=== PATIENT | female | born 1955 | race Caucasian/White ===

== ENCOUNTER → 2017-03-12 | Outpatient (CLI) | payer BC ==
--- NOTE | 2017-03-16 09:03 | MM ---
Reason for exam: screening (asymptomatic). Last mammogram was performed 1 year and 3 months ago. History: Patient is postmenopausal, has history of other cancer at age 58, and had first child at age 39. Family history of breast cancer in maternal grandmother at age 70. Took estrogen for 2 years beginning at age 52. Physical Findings: A clinical breast exam by your physician is recommended on an annual basis and results should be correlated with mammographic findings. MG 3D Screening Mammo W/Cad Bilateral CC and MLO view(s) were taken. Prior study comparison: November 28, 2015, bilateral MG 3d screening mammo w/cad. October 16, 2014, left breast MG work up mamm w CAD LT. The breast tissue is heterogeneously dense. This may lower the sensitivity of mammography. No suspicious abnormality. No significant changes when compared with prior studies. ASSESSMENT: Negative, BI-RAD 1 RECOMMENDATION: Routine screening mammogram of both breasts in 1 year.
== END | disposition home or self-care (01) ==
LOC: RADMAMWWP 16:17
PROVIDERS: ATTEND Obstetrics & Gynecology
DX: Z12.31 Encounter for screening mammogram for malignant neoplasm of breast (principal)
CPT/HCPCS: 77063; G0202

== ENCOUNTER 2017-03-13 06:22 | Emergency (ER) | payer BC ==
[2017-03-13 07:15] LABS: Basophils % (A) 0 %; CH 31.5; CHCM 34.1; Eosinophils # (A) 0.1 k/uL (0-0.7); Eosinophils % (A) 0 %; HCT 50.4 % (34.0-46.0); HDW 2.41; HGB 16.8 gm/dL (11.4-16.0); Luc # (Auto) 0.05; Luc % (Auto) 0; Lymphocytes # (A) 0.8 k/uL (1.0-4.8); Lymphocytes % (A) 6 %; MCH 30.8 pg (25.0-35.0); MCHC 33.2 g/dL (31.0-37.0); MCV 92.7 fL (80.0-100.0); Mean Platelet Volume 7.8; Monocytes # (A) 0.3 k/uL (0-1.0); Monocytes % (A) 3 %; Neutrophils # (A) 11.8 k/uL (1.3-7.7); Neutrophils % (A) 90 %; RBC 5.44 m/uL (3.80-5.40); WBC 13.1 k/uL (3.8-10.6); WBC (Perox) 13.17
[2017-03-13] MEDS ORDERED: ONDANSETRON 4 MG/2 ML VIAL IVP STA (07:18)
[2017-03-13 07:20] LABS: Appearance,Urine Clear (Clear); Bilirubin,Urine Negative (Negative); Glucose,Urine (UA) Negative (Negative); Ketones,Urine 1+ (Negative); Leukocyte Esterase,Urine Trace (Negative); Mucus,Urine Moderate /hpf; Nitrite,Urine Negative (Negative); PH, Urine 6.5 (5.0-8.0); Particle Count 5253; Protein,Urine Trace (Negative); RBC,Urine 2 /hpf (0-5); Specific Gravity,Urine 1.014 (1.001-1.035); Squamous Epithelial Cell,Urine <1 /hpf (0-4); UA Billing (MACRO vs. MICRO) MICRO; Urobilinogen,Urine <2.0 mg/dL (<2.0); WBC,Urine 3 /hpf (0-5)
[2017-03-13] MEDS ORDERED: MORPHINE SULFATE 10 MG/ML SYRINGE IVP STA (07:20)
[2017-03-13 07:23] LABS: ALT 26 U/L (9-52); AST 23 U/L (14-36); Alkaline Phosphatase 90 U/L (38-126); Amylase 39 U/L (30-110); Anion Gap 13 mmol/L; Blood Urea Nitrogen 21 mg/dL (7-17); Calcium 10.9 mg/dL (8.4-10.2); Carbon Dioxide 22 mmol/L (22-30); Chloride 105 mmol/L (98-107); Glucose 175 mg/dL (74-99); Non-African American GFR(MDRD) >60 (>60 ml/min/1.73 sqM); Potassium 4.5 mmol/L (3.5-5.1); Sodium 140 mmol/L (137-145); Total Bilirubin 0.9 mg/dL (0.2-1.3); Total Protein 8.5 g/dL (6.3-8.2)
--- NOTE | 2017-03-13 07:28 | ED ---
Abdominal Pain HPI - General Chief Complaint: Abdominal Pain Stated Complaint: Abd pain Time Seen by Provider: 03/13/17 07:01 Source: patient Mode of arrival: wheelchair Limitations: no limitations - History of Present Illness Initial Comments: 's patient is a 61-year-old woman who presents to be evaluated for abdominal pain, nausea and vomiting. The patient states that the pain started around 6 PM. It was after she had eaten a ham sandwich. The pain is located in the midabdomen just below the umbilicus. It is aching, moderate, and she has not noted worsening factors, but does feel a little better if she holds her abdomen. She started having multiple episodes of vomiting shortly after 1 AM. She states that now she is just vomiting bile. MD Complaint: abdominal pain Onset/Timin -: hour(s) Location: periumbilical Radiation: none Migration to: no migration Severity: moderate Quality: aching Consistency: constant Improves With: nothing Worsens With: nothing Associated Symptoms: nausea, vomiting - Related Data Home Medications Medication Instructions Recorded Confirmed Calcium Carb/Vitamin D3/Vit K1 1 tab PO HS 03/13/17 03/13/17 [Viactiv Soft Chew Tablet] Calcium Carb/Vitamin D3/Vit K1 2 tab PO QAM 03/13/17 03/13/17 [Viactiv Soft Chew Tablet] Diltiazem HCl [Cartia Xt] 120 mg PO DAILY 03/13/17 03/13/17 Excedrin Tension Headache 2 tab PO Q12H PRN 03/13/17 03/13/17 Previous Rx's Medication Instructions Recorded Dicyclomine [Bentyl] 20 mg PO QID #15 tablet 03/13/17 Famotidine [Pepcid] 20 mg PO DAILY #14 tablet 03/13/17 Ondansetron Odt [Zofran ODT] 4 mg PO Q8HR PRN #10 tab 03/13/17 Allergies Allergy/AdvReac Type Severity Reaction Status Date / Time No Known Allergies Allergy Verified 03/13/17 07:39 Review of Systems ROS Statement: Those systems with pertinent positive or pertinent negative responses have been documented in the HPI. ROS Other: All systems not noted in ROS Statement are negative. Constitutional: Denies: fever, chills Respiratory: Denies: cough, dyspnea Cardiovascular: Denies: chest pain, palpitations, edema Gastrointestinal: Reports: abdominal pain, nausea, vomiting. Denies: diarrhea, constipation Genitourinary: Denies: dysuria, hematuria Musculoskeletal: Denies: back pain Skin: Denies: rash Neurological: Denies: headache, weakness, numbness Past Medical History Past Medical History: Atrial Fibrillation, Asthma History of Any Multi-Drug Resistant Organisms: None Reported Past Surgical History: Appendectomy, Hysterectomy Additional Past Surgical History / Comment(s): left knee arthroscopy Past Psychological History: No Psychological Hx Reported Smoking Status: Never smoker Past Alcohol Use History: Occasional Past Drug Use History: None Reported General Exam Limitations: no limitations General appearance: alert, in no apparent distress Head exam: Present: atraumatic, normocephalic Eye exam: Present: normal appearance. Absent: scleral icterus, conjunctival injection ENT exam: Present: mucous membranes dry Respiratory exam: Present: normal lung sounds bilaterally. Absent: respiratory distress, wheezes, rales, rhonchi, stridor Cardiovascular Exam: Present: regular rate, normal rhythm, normal heart sounds. Absent: systolic murmur, diastolic murmur, rubs, gallop GI/Abdominal exam: Present: soft, diminished bowel sounds. Absent: distended, tenderness, guarding, rebound, rigid, mass, pulsatile mass, hernia Extremities exam: Present: normal inspection, normal capillary refill. Absent: pedal edema, calf tenderness Back exam: Present: normal inspection. Absent: CVA tenderness (R), CVA tenderness (L) Neurological exam: Present: alert Skin exam: Present: warm, dry, intact, normal color. Absent: rash Course Vital Signs 03/13/17 03/13/17 06:25 07:53 Temperature 97.9 F 98.3 F Pulse Rate 99 81 Respiratory 28 H 16 Rate Blood Pressure 168/80 138/75 O2 Sat by Pulse 100 95 Oximetry Medical Decision Making - Lab Data Result diagrams: 03/13/17 06:44 03/13/17 06:44 Lab Results 03/13/17 03/13/17 03/13/17 Range/Units 06:40 06:44 06:44 WBC 13.1 H (3.8-10.6) k/uL RBC 5.44 H (3.80-5.40) m/uL Hgb 16.8 H (11.4-16.0) gm/dL Hct 50.4 H (34.0-46.0) % MCV 92.7 (80.0-100.0) fL MCH 30.8 (25.0-35.0) pg MCHC 33.2 (31.0-37.0) g/dL RDW 14.0 (11.5-15.5) % Plt Count 329 (150-450) k/uL Neutrophils % 90 % Lymphocytes % 6 % Monocytes % 3 % Eosinophils % 0 % Basophils % 0 % Neutrophils # 11.8 H (1.3-7.7) k/uL Lymphocytes # 0.8 L (1.0-4.8) k/uL Monocytes # 0.3 (0-1.0) k/uL Eosinophils # 0.1 (0-0.7) k/uL Basophils # 0.0 (0-0.2) k/uL Sodium 140 (137-145) mmol/L Potassium 4.5 (3.5-5.1) mmol/L Chloride 105 (98-107) mmol/L Carbon Dioxide 22 (22-30) mmol/L Anion Gap 13 mmol/L BUN 21 H (7-17) mg/dL Creatinine 0.84 (0.52-1.04) mg/dL Est GFR (MDRD) Af Amer >60 (>60 ml/min/1.73 sqM) Est GFR (MDRD) Non-Af >60 (>60 ml/min/1.73 sqM) Glucose 175 H (74-99) mg/dL Calcium 10.9 H (8.4-10.2) mg/dL Total Bilirubin 0.9 (0.2-1.3) mg/dL AST 23 (14-36) U/L ALT 26 (9-52) U/L Alkaline Phosphatase 90 (38-126) U/L Total Protein 8.5 H (6.3-8.2) g/dL Albumin 5.2 H (3.5-5.0) g/dL Amylase 39 (30-110) U/L Lipase 68 (23-300) U/L Urine Color Yellow Urine Appearance Clear (Clear) Urine pH 6.5 (5.0-8.0) Ur Specific [place] 1.014 (1.001-1.035) Urine Protein Trace H (Negative) Urine Glucose (UA) Negative (Negative) Urine Ketones 1+ H (Negative) Urine Blood Negative (Negative) Urine Nitrite Negative (Negative) Urine Bilirubin Negative (Negative) Urine Urobilinogen <2.0 (<2.0) mg/dL Ur Leukocyte Esterase Trace H (Negative) Urine RBC 2 (0-5) /hpf Urine WBC 3 (0-5) /hpf Ur Squamous Epith Cells <1 (0-4) /hpf Hyaline Casts 1 (0-2) /lpf Urine Mucus Moderate H (None) /hpf Disposition Clinical Impression: Abdominal pain, Ileus Disposition: HOME SELF-CARE Condition: Good Instructions: Abdominal Pain (ED) Prescriptions: Dicyclomine [Bentyl] 20 mg PO QID #15 tablet Famotidine [Pepcid] 20 mg PO DAILY #14 tablet Ondansetron Odt [Zofran ODT] 4 mg PO Q8HR PRN #10 tab PRN Reason: Nausea Referrals: Timoteo Dougherty MD [Primary Care Provider] - 1-2 days
--- NOTE | 2017-03-13 07:42 | XR ---
EXAMINATION TYPE: XR KUB DATE OF EXAM: 03/13/2017 COMPARISON: NONE INDICATION: Abdominal pain nausea TECHNIQUE: Single view abdomen upright view FINDINGS: Air-fluid levels are within small bowel loops within the left midabdomen. Some colonic bowel gas is p resent. Psoas margins are normal. No organomegaly is present. IMPRESSION: 1. Nonspecific abdomen. Correlate for focal ileus versus gastroenteritis. Partial small bowel obstruc tion is considered less likely. Follow-up can be performed as clinically indicated.
[2017-03-13 08:01] VITALS: BP 138/75; PULSE 81; RESP 16; TEMP 98.3
== END 2017-03-13 08:25 | disposition home or self-care (01) ==
LOC: EC 06:22
DX: K56.7 Ileus, unspecified (principal); I48.91 Unspecified atrial fibrillation; Z79.899 Other long term (current) drug therapy; Z90.49 Acquired absence of other specified parts of digestive tract
CPT/HCPCS: 99284; 96374; 96375; 36415; 80053; 82150; 83690; 85025; 81001; 74000; J2270; J2405

== ENCOUNTER → 2018-04-30 | Outpatient (CLI) | payer BC ==
--- NOTE | 2018-05-05 09:00 | MM ---
Reason for exam: screening (asymptomatic). Last mammogram was performed 1 year and 2 months ago. History: Patient is postmenopausal, has history of other cancer at age 58, and had first child at age 39. Family history of breast cancer in maternal grandmother at age 70. Took estrogen for 2 years beginning at age 52. Physical Findings: A clinical breast exam by your physician is recommended on an annual basis and results should be correlated with mammographic findings. MG 3D Screening Mammo W/Cad Bilateral CC and MLO view(s) were taken. Prior study comparison: March 12, 2017, bilateral MG 3d screening mammo w/cad. November 28, 2015, bilateral MG 3d screening mammo w/cad. The breast tissue is heterogeneously dense. This may lower the sensitivity of mammography. No significant changes when compared with prior studies. ASSESSMENT: Negative, BI-RAD 1 RECOMMENDATION: Routine screening mammogram of both breasts in 1 year.
== END | disposition home or self-care (01) ==
LOC: RADMAMWWP 11:59
PROVIDERS: ATTEND Obstetrics & Gynecology
DX: Z12.31 Encounter for screening mammogram for malignant neoplasm of breast (principal)
CPT/HCPCS: 77063; 77067

== ENCOUNTER → 2018-10-19 | Outpatient (CLI) | payer BC ==
[2018-10-19 16:26] LABS: LDL Cholesterol,Calculated 121.4 mg/dL (0.0-131.0); VLDL Calculation 12.6 mg/dL (5.00-40.00)
== END | disposition home or self-care (01) ==
LOC: LABWHC1 11:09
PROVIDERS: ATTEND Internal Medicine Interventional Cardiology
DX: E78.2 Mixed hyperlipidemia (principal)
CPT/HCPCS: 36415; 80061; 84450; 84460

== ENCOUNTER 2020-01-03 22:22 | Emergency (ER) | payer BC ==
[2020-01-03 22:28] VITALS: RESP 16
[2020-01-03] MEDS ORDERED: ONDANSETRON 4 MG/2 ML VIAL IVP STA (22:40)
[2020-01-03] MEDS ORDERED: MORPHINE SULFATE 4 MG/ML SYRINGE IVP STA (22:40)
--- NOTE | 2020-01-03 22:49 | ED ---
General Adult HPI - General Chief complaint: Extremity Injury, Upper Stated complaint: Fall, L Shoulder Pain Time Seen by Provider: 01/03/20 22:31 Source: patient, RN notes reviewed Mode of arrival: ambulatory Limitations: no limitations - History of Present Illness Initial comments: 64-year-old female with a past medical history of atrial fibrillation, asthma presents to the emergency room for a chief complaint of left shoulder pain. Patient reports that it is raining out and she was stepping into her car. She stepped on the foot bar and slipped here and she fell directly onto the left shoulder. Has significant pain on the left shoulder and movement of the left shoulder. Denies hitting her head or neck. Denies blood thinners. No loss of consciousness. Denies pain elsewhere.Patient has no other complaints at this time including shortness of breath, chest pain, abdominal pain, nausea or vomiting, headache, or visual changes. - Related Data Home Medications Medication Instructions Recorded Confirmed Calcium Carb/Vitamin D3/Vit K1 1 tab PO HS 03/13/17 03/13/17 [Viactiv Soft Chew Tablet] Calcium Carb/Vitamin D3/Vit K1 2 tab PO QAM 03/13/17 03/13/17 [Viactiv Soft Chew Tablet] Diltiazem HCl [Cartia Xt] 120 mg PO DAILY 03/13/17 03/13/17 Excedrin Tension Headache 2 tab PO Q12H PRN 03/13/17 03/13/17 Previous Rx's Medication Instructions Recorded Dicyclomine [Bentyl] 20 mg PO QID #15 tablet 03/13/17 Famotidine [Pepcid] 20 mg PO DAILY #14 tablet 03/13/17 Ondansetron Odt [Zofran ODT] 4 mg PO Q8HR PRN #10 tab 03/13/17 HYDROcodone/APAP 5-325MG [[place] 1 tab PO Q6HR PRN #10 tab 01/04/20 5-325] Allergies Allergy/AdvReac Type Severity Reaction Status Date / Time No Known Allergies Allergy Verified 01/03/20 22:28 Review of Systems ROS Statement: Those systems with pertinent positive or pertinent negative responses have been documented in the HPI. ROS Other: All systems not noted in ROS Statement are negative. Past Medical History Past Medical History: Atrial Fibrillation, Asthma History of Any Multi-Drug Resistant Organisms: None Reported Past Surgical History: Appendectomy, Hysterectomy Additional Past Surgical History / Comment(s): left knee arthroscopy Past Psychological History: No Psychological Hx Reported Smoking Status: Never smoker Past Alcohol Use History: Occasional Past Drug Use History: None Reported General Exam Limitations: no limitations General appearance: alert, in no apparent distress Head exam: Present: atraumatic, normocephalic, normal inspection Eye exam: Present: normal appearance, PERRL, EOMI. Absent: scleral icterus, conjunctival injection, periorbital swelling ENT exam: Present: normal exam, mucous membranes moist Neck exam: Present: normal inspection, full ROM. Absent: tenderness, meningismus, lymphadenopathy Respiratory exam: Present: normal lung sounds bilaterally. Absent: respiratory distress, wheezes, rales, rhonchi, stridor Cardiovascular Exam: Present: regular rate, normal rhythm, normal heart sounds. Absent: systolic murmur, diastolic murmur, rubs, gallop, clicks GI/Abdominal exam: Present: soft, normal bowel sounds. Absent: distended, tenderness, guarding, rebound, rigid Extremities exam: Present: tenderness (ttenderness to the lateral shoulder. No tenderness in the distal humerus.), normal capillary refill (capillary refill less than 2 seconds, radial pulse 2+ in the left upper extremity.), other (skin intact. Sensation intact. Right upper extremity and bilateral lower extremities have full range motion.). Absent: full ROM (patient unable to move the left shoulder. Patient able to move all fingers of the left hand, make a fist, spread digits, make okay sign, and flex and extend the left wrist.), joint swelling Course Vital Signs 01/03/20 22:25 Temperature 98.2 F Pulse Rate 81 Respiratory 16 Rate Blood Pressure 130/77 O2 Sat by Pulse 100 Oximetry Medical Decision Making - Medical Decision Making neurovascular status intact. X-ray of the left shoulder shows a comminuted humeral neck fracture with impaction. patient was placed in a sling. Pain controlled. Will be sent home with Tylenol 3 starter pack as well as [place] prescription. Discussed follow-up parameters. We'll return for worsening symptoms. Disposition Clinical Impression: Fracture of neck of humerus Disposition: HOME SELF-CARE Condition: Good Instructions (If sedation given, give patient instructions): Arm Fracture in Adults (ED) Additional Instructions: please take Tylenol 3 or [place] for pain. use sling as needed for comfort. Please follow-up with orthopedics tomorrow by calling for an appointment. Return to the emergency room for any worsening symptoms. Prescriptions: HYDROcodone/APAP 5-325MG [[place] 5-325] 1 tab PO Q6HR PRN #10 tab PRN Reason: Pain Is patient prescribed a controlled substance at d/c from ED?: Yes When asked, does pt state using other controlled substances?: No If prescribed controlled substance>3 days was MAPS reviewed?: Prescribed <3 Days If opioid is for acute pain is fill amount 7 days or less?: Yes If Rx opioid, was Start Talking consent form obtained?: Yes Referrals: Timoteo Dougherty MD [Primary Care Provider] - 1-2 days Bertin Mckinley MD [STAFF PHYSICIAN] - 1-2 days Time of Disposition: 00:16
--- NOTE | 2020-01-03 23:38 | XR ---
EXAMINATION TYPE: XR shoulder complete LT DATE OF EXAM: 01/03/2020 COMPARISON: NONE HISTORY: Fall. Pain. TECHNIQUE: 2 views FINDINGS: There is impacted comminuted humeral neck fracture. There is no dislocation. AC joint is in tact. Scapula is intact. IMPRESSION: Comminuted humeral neck fracture with impaction.
[2020-01-04] MEDS ORDERED: ACET/COD 300 MG/30 MG STARTER PACK 6 TAB BTL PO STA (00:17)
[2020-01-04] MEDS ORDERED: HYDROmorphone 0.5 MG/0.5 ML SYRINGE IVP STA (00:29)
[2020-01-04 01:06] VITALS: BP 132/65; PULSE 77; TEMP 98.3
== END 2020-01-04 00:30 | disposition home or self-care (01) ==
LOC: EC 22:22
DX: S42.212A Unspecified displaced fracture of surgical neck of left humerus, initial encounter for closed fracture (principal); I48.91 Unspecified atrial fibrillation; W01.0XXA Fall on same level from slipping, tripping and stumbling without subsequent striking against object, initial encounter
CPT/HCPCS: 73030; 99283; 96374; 96375 ×2; J2270; J2405

== ENCOUNTER → 2020-04-19 | Outpatient (CLI) | payer BC ==
--- NOTE | 2020-04-20 10:39 | MM ---
Reason for exam: screening (asymptomatic). Last mammogram was performed 2 years ago. History: Patient is postmenopausal, has history of other cancer at age 58, and had first child at age 39. Family history of breast cancer in maternal grandmother at age 70. Took estrogen for 2 years beginning at age 52. Physical Findings: A clinical breast exam by your physician is recommended on an annual basis and results should be correlated with mammographic findings. MG 3D Screening Mammo W/Cad Bilateral CC and MLO view(s) were taken. Prior study comparison: April 30, 2018, bilateral MG 3d screening mammo w/cad. March 12, 2017, bilateral MG 3d screening mammo w/cad. The breast tissue is heterogeneously dense. This may lower the sensitivity of mammography. There is no discrete abnormality. No significant changes when compared with prior studies. ASSESSMENT: Negative, BI-RAD 1 RECOMMENDATION: Routine screening mammogram of both breasts in 1 year.
== END | disposition home or self-care (01) ==
LOC: RADMAMWWP 16:29
PROVIDERS: ATTEND Obstetrics & Gynecology
DX: Z12.31 Encounter for screening mammogram for malignant neoplasm of breast (principal); Z80.3 Family history of malignant neoplasm of breast
CPT/HCPCS: 77063; 77067

== ENCOUNTER → 2021-07-16 | Outpatient (CLI) | payer BC ==
--- NOTE | 2021-07-17 13:49 | MM ---
Reason for exam: screening (asymptomatic). Last mammogram was performed 1 year and 3 months ago. History: Patient is postmenopausal, has history of other cancer at age 58, and had first child at age 39. Family history of breast cancer in maternal grandmother at age 70. Took estrogen for 2 years beginning at age 52. Physical Findings: A clinical breast exam by your physician is recommended on an annual basis and results should be correlated with mammographic findings. MG 3D Screening Mammo W/Cad Bilateral CC and MLO view(s) were taken. Prior study comparison: April 19, 2020, bilateral MG 3d screening mammo w/cad. April 30, 2018, bilateral MG 3d screening mammo w/cad. The breast tissue is heterogeneously dense. This may lower the sensitivity of mammography. There is no discrete abnormality. Focal asymmetry upper right breast is stable. No significant changes when compared with prior studies. ASSESSMENT: Benign, BI-RAD 2 RECOMMENDATION: Routine screening mammogram of both breasts in 1 year.
== END | disposition home or self-care (01) ==
LOC: RADMAMWWP 16:17
PROVIDERS: ATTEND Obstetrics & Gynecology
DX: Z12.31 Encounter for screening mammogram for malignant neoplasm of breast (principal); Z78.0 Asymptomatic menopausal state; Z80.3 Family history of malignant neoplasm of breast
CPT/HCPCS: 77063; 77067

== ENCOUNTER → 2022-10-27 | Outpatient (CLI) | payer BC ==
--- NOTE | 2022-10-28 10:13 | MM ---
Reason for Exam: Screening (asymptomatic). Last mammogram was performed 1 year(s) and 3 month(s) ago. Patient History: Menarche at age 12. First Full-Term at age 39. Late child-bearing (after 30). Left ovary removed at age 52. Right ovary removed at age 52. Hysterectomy at age 52. Postmenopausal. Estrogen, starting at age 52 for 2 years. Maternal grandmother had breast cancer, age 70. Risk Values: Carrie 5 year model risk: 2.5%. NCI Lifetime model risk: 9.4%. Prior Study Comparison: 04/30/2018 Bilateral Screening Mammogram, [facility]. 04/19/2020 Bilateral Screening Mammogram, [facility]. 07/16/2021 Bilateral Screening Mammogram, [facility]. Tissue Density: The breast tissue is heterogeneously dense. This may lower the sensitivity of mammography. Findings: Analyzed By CAD. There is no suspicious group of microcalcifications or new suspicious mass in either breast. Overall Assessment: Negative, BI-RAD 1 Management: Screening Mammogram of both breasts in 1 year. . Patient should continue monthly self-breast exams. A clinical breast exam by your physician is recommended on an annual basis. This exam should not preclude additional follow-up of suspicious palpable abnormalities. Note on Carrie scores and lifetime risk: 1. A Carrie score greater than 3% is considered moderate risk. If this is the case, consider specialist referral to assess eligibility for a risk reducing agent. 2. If overall lifetime risk for the development of breast cancer is 20% or higher, the patient may qualify for future screening with alternating mammogram and breast MRI. Electronically signed and approved by: Vaughn Olsen M.D.
== END | disposition home or self-care (01) ==
LOC: RADMAMWWP 14:01
PROVIDERS: ATTEND Obstetrics & Gynecology
DX: Z12.31 Encounter for screening mammogram for malignant neoplasm of breast (principal); Z78.0 Asymptomatic menopausal state; Z80.3 Family history of malignant neoplasm of breast
CPT/HCPCS: 77063; 77067

== ENCOUNTER 2023-12-01 07:02 | Day surgery (SDC) | payer BC, MEDICARE ==
[2023-11-26 16:05] VITALS: BMI 22.4
[2023-12-01 07:20] VITALS: TEMP 97.9
[2023-12-01] MEDS: IV FLUID CONTINUATION 1,000 ML IV ONE (07:22)
[2023-12-01] MEDS: LACTATED RINGERS 1,000 ML IV SCH (07:31)
[2023-12-01] MEDS ORDERED: PROPOFOL 10 MG/ML 20 ML VIAL IV ONE (07:56)
--- NOTE | 2023-12-01 08:21 | P.PCN ---
Date of Procedure: 12/01/23 Procedure(s) Performed: BRIEF HISTORY: Patient is a 67-year-old pleasant white male scheduled for an elective colonoscopy as a part of evaluation by history of colon polyps. Last colonoscopy was 5 years ago. PROCEDURE PERFORMED: Colonoscopy. PREOPERATIVE DIAGNOSIS: History of colon polyps. IV sedation per Anesthesia. PROCEDURE: After informed consent was obtained, the patient, was brought into the endoscopy unit. IV sedation was administered by Anesthesia under continuous monitoring. Digital rectal examination was normal. Initially the Olympus CF-160 flexible video colonoscope was then inserted in the rectum, gradually advanced into the sigmoid colon and further advancement was not possible because of acute angulation. The scope was removed. The pediatric colonoscopy was then introduced into the rectum and gently advanced into the cecum without any difficulty. Careful examination was performed as the scope was gradually being withdrawn. Ileocecal valve and the appendiceal orifice were visualized and appeared normal. Prep was excellent. Mucosa of the cecum, ascending colon, transverse colon, descending colon, sigmoid colon, and rectum appeared normal. Scattered sigmoid diverticulosis. Retroflexion was performed in the rectum and no lesions were seen. The patient tolerated the procedure well. IMPRESSION: Normal-appearing colon from rectum to cecum with no evidence of colorectal neoplasia. Scattered sigmoid diverticulosis. RECOMMENDATIONS: Findings of this examination were discussed with the patient as well as her family. She was advised to have repeat screening colonoscopy in 10 years..
[2023-12-01 08:31] VITALS: RESP 18
[2023-12-01 08:40] VITALS: BP 115/64; PULSE 79
== END 2023-12-01 09:34 | disposition home or self-care (01) ==
LOC: ORWHC2ENDO 07:02
PROVIDERS: ATTEND Internal Medicine Gastroenterology
DX: Z12.11 Encounter for screening for malignant neoplasm of colon (principal); K57.30 Diverticulosis of large intestine without perforation or abscess without bleeding; Z86.010 Personal history of colon polyps; I10 Essential (primary) hypertension; J45.909 Unspecified asthma, uncomplicated; I48.91 Unspecified atrial fibrillation; Z79.51 Long term (current) use of inhaled steroids; Z79.899 Other long term (current) drug therapy
CPT/HCPCS: 45378; J2704

== ENCOUNTER → 2024-01-18 | Outpatient (CLI) | payer MEDICARE, BC ==
--- NOTE | 2024-01-18 16:18 | MM ---
Reason for Exam: Screening (asymptomatic). Last mammogram was performed 1 year(s) and 3 month(s) ago. Patient History: Menarche at age 12. First Full-Term at age 39. Late child-bearing (after 30). Left ovary removed at age 52. Right ovary removed at age 52. Hysterectomy at age 52. Postmenopausal. Estrogen, starting at age 52 for 2 years. Maternal grandmother had breast cancer, age 70. Risk Values: Carrie 5 year model risk: 2.6%. NCI Lifetime model risk: 8.7%. Prior Study Comparison: 04/19/2020 Bilateral Screening Mammogram, [facility]. 07/16/2021 Bilateral Screening Mammogram, [facility]. 10/27/2022 Bilateral MG 3D screening mammo w/cad, [facility]. Tissue Density: The breasts are extremely dense, which lowers the sensitivity of mammography. Findings: Analyzed By CAD. The pattern is symmetrical. No significant interval change No suspicious groups of microcalcifications, spiculated or lobular masses, architectural distortion or other secondary signs of malignancy are mammographically apparent. Overall Assessment: Benign, BI-RAD 2 Management: Screening Mammogram of both breasts in 1 year. A negative mammogram report should not preclude additional follow up of suspicious palpable abnormalities. Patient should continue monthly self breast exam. A clinical breast exam by your physician is recommended on an annual basis and results should be correlated with mammographic findings. Note on Carrie scores and lifetime risk: 1. A Carrie score greater than 3% is considered moderate risk. If this is the case, consider specialist referral to assess eligibility for a risk reducing agent. 2. If overall lifetime risk for the development of breast cancer is 20% or higher, the patient may qualify for future screening with alternating mammogram and breast MRI. [facility], , 01/18/2024 4:15 PM. Electronically signed and approved by: Kenyon Sepulveda D.O. Radiologis
--- NOTE | 2024-01-19 23:25 | BD ---
EXAMINATION TYPE: Axial Bone Density DATE OF EXAM: 01/18/2024 CLINICAL HISTORY: 68 years old Female. ICD-10 CODE: M81.0 AGE-RELATED OSTEOPOROSI Height: 5 ft 2 in Weight: 122 FRAX RISK QUESTIONS: Alcohol (3 or more units per day): no Family History (Parent hip fracture): yes Glucocorticoids (More than 3mos): no (Ex: prednisone, prednisolone, methylprednisolone, dexamethasone, and hydrocortisone). History of Fracture in Adulthood: yes Secondary Osteoporosis: 1. Type 1 Diabetes: no 2. Hyperthyroidism: no 3. Menopause before 45: no 4. Malnutrition: no 5. Chronic liver disease: no Rheumatoid Arthritis: no Current Tobacco Use: no RISK FACTORS HISTORY OF: Surgery to Spine/Hip(right/left)/Wrist (right/left): no MEDICATIONS: Thyroid Medications: no Osteoporosis Medications: yes Which medication: evista How Lon years EXAM MEASUREMENTS: Bone mineral densitometry was performed using the [employer] System. Bone mineral density as measured about the Lumbar spine is: ----- L1-L4(G/cm2): 0.868 T Score Values are as follows: ----- L1: -3.2 ----- L2: -3.2 ----- L3: -2.3 ----- L4: -2.0 ----- L1-L4: -2.6 Z Score Values are as follows: ----- L1: -1.3 ----- L2: -1.3 ----- L3: -0.4 ----- L4: -0.1 ----- L1-L4: -0.7 Bone mineral density has: decreased -25.9 % since study of: 2005 Bone mineral density about the R hip (g/cm2): 0.629 Bone mineral density about the L hip (g/cm2): 0.653 T Score values are as follows: -----R Neck: -2.9 -----L Neck: -2.8 -----R Total: -2.3 -----L Total: -2.4 Z Score values are as follows: -----R Neck: -1.2 -----L Neck: -1.0 -----R Total: -0.8 -----L Total: -0.9 Bone mineral density has: decreased -24.8 % since study of: 2005 FRAX%s: The graph provided illustrates a 26.4 % chance for a major osteoporotic fx and a 6.8 % chance for the hips probability for fx in 10 years time. IMPRESSION: Osteoporosis (T Score less than -2.5). There is increased fracture risk and therapy is usually indicated based on age. Re-Screen 1-2 years. NOTE: T-SCORE=SD OF THE YOUNG ADULT MEAN. [facility], , 01/19/2024 11:23 PM
== END | disposition home or self-care (01) ==
LOC: RADBDWWP 11:17
PROVIDERS: ATTEND Obstetrics & Gynecology
DX: Z12.31 Encounter for screening mammogram for malignant neoplasm of breast (principal); M81.0 Age-related osteoporosis without current pathological fracture; Z80.3 Family history of malignant neoplasm of breast; Z78.0 Asymptomatic menopausal state; Z90.722 Acquired absence of ovaries, bilateral; R92.343 Mammographic extreme density, bilateral breasts
CPT/HCPCS: 77063; 77067; 77080